=== PATIENT | male | born 1995 | race American Indian/Alaskan Native ===

== ENCOUNTER 2018-03-23 23:53 | Emergency (ER) | payer SELFPAY ==
[2018-03-24 00:41] VITALS: BP 124/93
[2018-03-24] MEDS ORDERED: TYLENOL PO ONE (00:43)
--- NOTE | 2018-03-24 01:25 | XRay Report ---
FINAL REPORT EXAM: XR TIB/FIB BILAT 2V HISTORY: bilateral tib/fib pain COMPARISON: None available. FINDINGS: Two views of each tibia and fibula obtained. There is film processing artifact on the images involving the left tibia and fibula. This artifact limits evaluation. Repeat plain films of the left tibia and fibula suggested. Bony structures of the right tibia and fibula are intact. No acute fracture. IMPRESSION: There is film processing artifact on some of the images involving the left tibia and fibula. There is subtle offset of the cortex of the proximal fibular diaphysis and mid to distal fibular diaphysis concerning for possible fractures. To ensure this is not related to artifact, repeat plain films of the left tibia and fibula suggested. No acute fracture of the right tibia and fibula.
== END 2018-03-24 01:44 | disposition left against medical advice (07) ==
LOC: ED 23:53
DX: R51 Headache (principal); M54.2 Cervicalgia; Z53.21 Procedure and treatment not carried out due to patient leaving prior to being seen by health care provider